=== PATIENT | female | born 1970 | race Caucasian/White ===

== ENCOUNTER 2017-07-23 12:52 | Emergency (ER) | payer SELFPAY, OTHER | END 2017-07-23 15:47 | disposition left against medical advice (07) | LOC: M ED 12:52 | DX: M54.5 Low back pain (principal); R11.0 Nausea; Z53.21 Procedure and treatment not carried out due to patient leaving prior to being seen by health care provider ==

== ENCOUNTER 2017-07-23 16:14 | Emergency (ER) | payer OTHER ==
[2017-07-23] MEDS: METHOCARBAMOL 750 MG TAB PO (17:29)
[2017-07-23] MEDS: PERCOCET 5MG/325MG TAB PO (17:30)
== END 2017-07-23 18:18 | disposition home or self-care (01) ==
LOC: M ED 16:14
DX: S39.012A Strain of muscle, fascia and tendon of lower back, initial encounter (principal); X50.9XXA Other and unspecified overexertion or strenuous movements or postures, initial encounter; Y92.89 Other specified places as the place of occurrence of the external cause; Y93.E6 Activity, residential relocation; Z79.899 Other long term (current) drug therapy; Z88.2 Allergy status to sulfonamides; Z88.1 Allergy status to other antibiotic agents; Z87.891 Personal history of nicotine dependence
CPT/HCPCS: 99283